=== PATIENT | male | born 1985 | race Caucasian/White ===

== ENCOUNTER 2017-07-14 11:09 | Emergency (ER) | payer SELFPAY, MEDICAID | END 2017-07-14 17:41 | disposition left against medical advice (07) | LOC: FTE 11:09 | DX: Z53.21 Procedure and treatment not carried out due to patient leaving prior to being seen by health care provider (principal) ==

== ENCOUNTER 2017-11-11 20:55 | Emergency (ER) | payer SELFPAY, MEDICAID ==
[2017-11-11] MEDS: LIDOCAINE/MYLANTA 40 ML BTL PO (22:55)
== END 2017-11-11 23:34 | disposition home or self-care (01) ==
LOC: FTE 20:55
DX: R07.9 Chest pain, unspecified (principal); J45.909 Unspecified asthma, uncomplicated
CPT/HCPCS: 71045; 93005; 99284-25